=== PATIENT | female | born 1970 | race African-American/Black ===

== ENCOUNTER 2018-01-11 20:10 | Emergency (ER) | payer OTHER ==
[~2018-01-11] VITALS: Ht 157.5 cm; Wt 88.5 kg
[2018-01-11 20:44] LABS: ABSOLUTE NEUTROPHILS 3.4 thou/uL (1.4-8.2); BASOPHILS 0.7 % (0.0-2.0); EOSINOPHILS 0.9 % (0.0-3.0); HEMATOCRIT 39.4 % (37.0-47.0); HEMOGLOBIN 13.1 gm/dL (12.0-15.0); LYMPHOCYTES 38.6 % (24.0-44.0); MCH 28.6 pg (26.0-34.0); MCHC 33.2 g/dL (28.0-37.0); MCV 86.2 fL (80.0-100.0); MONOCYTES 8.4 % (1.0-8.0); PLATELET COUNT 355 thou/uL (150-400); POLYS 51.4 % (36.0-66.0); RBC 4.57 mil/uL (4.20-5.00); WBC 6.6 thou/uL (4.0-11.0)
[2018-01-11 20:52] LABS: CALCIUM 8.9 mg/dL (8.5-10.1); CREATININE 1.2 mg/dL (0.6-1.0)
[2018-01-11 20:55] LABS: POTASSIUM 2.7 mmol/L (3.5-5.1)
[2018-01-11] MEDS ORDERED: HYDROCHLOROTHIA25 M2 PO (20:57)
[2018-01-11 20:58] LABS: ALBUMIN 3.4 g/dL (3.4-5.0); TOTAL BILIRUBIN 0.4 mg/dL (<0.1-1.0); TOTAL PROTEIN 7.4 g/dL (6.4-8.2)
[2018-01-11] MEDS ORDERED: JUNEL FE 1-201 EACH PO (20:58)
[2018-01-11] MEDS ORDERED: ATENOLOL 50MG T50 M1 PO (20:58)
[2018-01-11 23:04] LABS: URINE BILIRUBIN NEGATIVE (Negative); URINE BLOOD TRACE (Negative); URINE CLARITY CLEAR; URINE COLOR YELLOW; URINE GLUCOSE-RANDOM* NEGATIVE (Negative); URINE KETONES NEGATIVE (Negative); URINE NITRITE-REFLEX NEGATIVE (Negative); URINE PROTEIN (DIPSTICK) NEGATIVE (Negative); URINE SPECIFIC GRAVITY <= 1.005 (1.005-1.035); URINE UROBILINOGEN 0.2 E.U./dl (0.2-1.0)
[2018-01-11 23:05] LABS: URINE LEUKOCYTES-REFLEX 1+ (Negative)
[2018-01-11 23:12] LABS: SQUAMOUS 0-3 Few /LPF (0-3)
[2018-01-11 23:13] LABS: CASTS None Seen /LPF (None Seen); CRYSTALS None Seen /LPF (None Seen); URINE RBC 0-2 Rare /HPF (0-2); URINE WBC-REFLEX 0-5 Rare /HPF (0-5)
[2018-01-11] MEDS ORDERED: KLOR-CON 1010 MEQ PO (23:50)
[2018-01-12 00:49] VITALS: BP 128/84
== END 2018-01-12 00:50 | disposition home or self-care (01) ==
LOC: ER 20:10
PROVIDERS: Emergency Medicine
DX: E87.6 Hypokalemia (principal); I10 Essential (primary) hypertension